=== PATIENT | female | born 1985 | race Caucasian/White ===

== ENCOUNTER 2020-10-17 18:07 | Outpatient (REF) | payer MEDICAID, SELFPAY ==
--- NOTE | 2020-10-17 15:45 | PAPFT_PTH ---
PATIENT: ADILENE OLSON LOC: [facility]#:[id number] AGE/SX: 35/F ROOM: RE10/17/[address]: Rafaela Dominguez : 1985 BED: DIS: 10/17/2020 SPEC #: [id number] RECD: 10/18/20 12:42 STATUS: DANIELLE REMin #: [id number] KULWANT: 10/17/20 15:[address]: Rafaela Dominguez DEPT: [facility] Cytology RECD BY: Amanda Shah Tissues: 1 - CX/ENDOCX FOR PAP SMEARS Procedures: PAP THIN PREP/[facility] Screening Comments: [id number] (CHLAMYDIA/GC) (UNSATISFACTORY FOR EVALUATION)
[2020-10-19 14:58] LABS: Chlamydia Result Negative (Negative); GC Result Negative (Negative)
== END 2020-10-17 18:27 ==
LOC: NCHCN 18:07
PROVIDERS: PCP Nurse Practitioner Family; Visit Provider Nurse Practitioner Family
DX: Z12.4 Encounter for screening for malignant neoplasm of cervix (principal); R87.615 Unsatisfactory cytologic smear of cervix
CPT/HCPCS: 87491; 87591; 88142

== ENCOUNTER 2020-11-28 14:05 | Outpatient (REF) | payer MEDICAID, SELFPAY ==
--- NOTE | 2020-11-28 13:27 | PAPFT_PTH ---
PATIENT: ADILENE OLSON LOC: [facility]#:[id number] AGE/SX: 35/F ROOM: RE11/28/[address]: Rafaela Dominguez : 1985 BED: DIS: 11/28/2020 SPEC #: [id number] RECD: 11/29/20 13:08 STATUS: DANIELLE LUCIO #: [id number] KULWANT: 11/28/20 13:[address]: Rafaela Dominguez DEPT: [facility] Cytology RECD BY: Amanda Shah Tissues: 1 - CX/ENDOCX FOR PAP SMEARS Procedures: PAP THIN PREP/[facility] Screening HPV DNA PROBE Comments: [id number]
== END 2020-11-28 14:25 ==
LOC: NCHCN 14:05
PROVIDERS: PCP Nurse Practitioner Family; Visit Provider Nurse Practitioner Family
DX: Z12.4 Encounter for screening for malignant neoplasm of cervix (principal); Z11.51 Encounter for screening for human papillomavirus (HPV)
CPT/HCPCS: 88142; 87624